=== PATIENT | female | born 1995 | race Caucasian/White ===

== ENCOUNTER 2016-06-02 06:39 | Inpatient (IN) | payer MEDICAID ==
[~2016-06-02] VITALS: Ht 147.3 cm; Wt 54.0 kg
--- NOTE | ~2016-06-02 | OR ---
PATIENT'S NAME: SAVAGE TORRE [facility] AGE: 20 Y [address] ROOM: [place] [id number] LOCATION: GOBS ADMIT DATE: 06/02/2016 OR/Procedure Report DISCHARGE DATE: FAMILY PHYSICIAN: CURLY GARCIA MD ATTENDING PHYSICIAN: LA FU SURGEON: La Fu MD BOOKKEEPER: None. DATE OF PROCEDURE: 06/02/2016 PRE-DELIVERY DIAGNOSES: 1. Intrauterine at 35 weeks and 6 days. 2. Intrauterine growth retardation of less than the 5th percentile with no interval growth. 3. Maternal tobacco use. 4. Arrest of descent. POST-DELIVERY DIAGNOSES: 1. Intrauterine at 35 weeks and 6 days. 2. Intrauterine growth retardation of less than the 5th percentile with no interval growth. 3. Maternal tobacco use. 4. Arrest of descent. PROCEDURE PERFORMED: A low vacuum-assisted vaginal delivery. FINDINGS: A viable male infant with score of 7 and 8 and a weight of 4 pounds 11 ounces. Intact placenta with three-vessel cord. Placenta was noted to have some what look like fibrous bands throughout. Placenta was otherwise normal in appearance. Normal-appearing cervix. A second-degree perineal laceration which was repaired per routine and hemostatic. SPECIMENS: Cord blood and arterial cord pH and placenta. FLUIDS: IV antibiotics with penicillin for unknown GBS status. ANESTHESIA: Anesthesia was with epidural. ESTIMATED BLOOD LOSS: 300 mL. COMPLICATIONS: None. DISPOSITION: The patient is stable. Routine care. INDICATIONS FOR PROCEDURE: The patient is a 20-year-old, G1, P0, who had been followed through her by Dr. Garcia in [place], [place]. She was PATIENT'S NAME: SAVAGE TORRE [facility] AGE: 20 Y [address] ROOM: [place] [id number] LOCATION: GOBS ADMIT DATE: 06/02/2016 OR/Procedure Report DISCHARGE DATE: FAMILY PHYSICIAN: CURLY GARCIA MD ATTENDING PHYSICIAN: LA FU referred to our office on June 01 for measuring size less than dates with a recent ultrasound showing intrauterine growth restriction with no percentile given. On review of patient's records, it appears that her dating is by a 20- week scan, although she did not initially present for care until she was approximately 25 weeks. It looks like she was dating size appropriate for dates until the last few weeks when started to doubly drop off. Her outside ultrasound done on May 21 gave an estimated weight around 1800 g. The patient does have a known history of tobacco use, but otherwise states the has been uncomplicated. She is also Rh negative. An ultrasound was repeated at our office on June 02 with findings of again an estimated weight just over 1800 g. IUGR appeared symmetrical and there does not appear to be any obvious abnormalities noted. It was discussed with the patient that since it appeared that there had been no interval growth that delivery was recommended. She was given a dose of Celestone on June 01 and then again on the morning of June 02 when she presented for induction. GBS culture was collected, but was not going to be available until after delivery. On June 02 the patient presented for her induction and was found to be 1, 50, and -2 and a Lala bulb was placed, and Pitocin IV was started. The patient progressed to 4 cm when Lala bulb came out. She then had an epidural placed. An AROM was performed with clear fluid at approximately 1700 hours that evening. She continued to progress normally through labor and was noted to be complete at 2050 hours. The patient then began expulsive efforts. DESCRIPTION OF PROCEDURE: The patient was allowed to make expulsive efforts with me present in the room for an additional hour. She failed to make any descent past +2 station with increasing caput present. It was felt at that time that it was appropriate to proceed with a low vacuum-assisted vaginal delivery as the patient has had an arrest for the last hour. She was consented and aware of risks and benefits of the procedure including risk for cephalohematoma, and risk of injury to the fetus, and risk of worsening perineal lacerations including possible 3rd or 4th degree tears. The patient voiced consent to the procedure. A Lala catheter had been previously present due to her epidural and was removed approximately 20 minutes prior to vacuum delivery. Pelvis was felt to be adequate and again as noted above estimated weight was approximately 1800 g. The fetus was felt to be in the JOBY presentation. The vacuum was tested and found to be adequate. The vacuum was then applied to head and brought to an appropriate pressure. With maternal expulsive efforts, gentle downward traction was applied. Over the course of two pushing efforts, head was delivered and vacuum was disengaged. Again the fetus was noted to be in the JOBY presentation. It was allowed to restitute. Had a tight nuchal cord x2 which was not able to be reduced and shoulders were delivered through the cord followed by the remainder of the body. The cord was then reduced and cord was clamped and cut. The infant was handed off to the awaiting unleavened dough mixer and NICU nurse. Arterial cord pH and cord blood were obtained. IV Pitocin was started PATIENT'S NAME: SAVAGE TORRE [facility] AGE: 20 Y [address] ROOM: [place] [id number] LOCATION: [facility] ADMIT DATE: 06/02/2016 OR/Procedure Report DISCHARGE DATE: FAMILY PHYSICIAN: CURLY GARCIA MD ATTENDING PHYSICIAN: LA FU per protocol. Gentle downward traction was applied on the umbilical cord and placenta was delivered shortly thereafter and appeared to be intact. Again as noted above, it was inspected and found to have some fibrous banding but otherwise appeared relatively normal. The cervix, vagina, and perineum were then inspected for lacerations with findings of a second-degree perineal laceration which was repaired per routine with 2-0 Vicryl. All needle, sponge, and instrument counts were noted to be correct x2. The patient remained in her room and appeared to be in stable condition at the completion of the procedure. LA FU MD GT/modl /[id number] d: 06/03/16 0020 t: 06/03/16 2306, OPERATIVE SUMMARY
[2016-06-02 07:42] LABS: BASOPHIL % 0.2 %; EOSINOPHIL % 0.2 %; HEMATOCRIT 36.2 % (33.0-46.0); HEMOGLOBIN 12.5 g/dL (11.0-15.0); IMMATURE GRANULOCYTE # 0.1 K/uL (0.0-0.3); IMMATURE GRANULOCYTE % 0.8 %; LYMPHOCYTE # 2.6 K/uL (0.8-4.0); LYMPHOCYTE % 14.9 %; MCH 30.6 pg (27.0-34.0); MCHC 34.5 gm/dL (32.0-36.5); MCV 88.7 fl (83.0-98.0); MONOCYTE % 5.9 %; MPV 9.2 fl (9.4-12.4); NEUTROPHIL # (ANC) 13.6 K/uL (1.8-7.8); NRBC % 0 /100WBC (0-0.00); PLATELET COUNT 365 K/uL (150-450); RBC 4.08 M/uL (3.50-5.00); RDW-CV 12.1 % (11.9-14.6); WBC 17.4 K/uL (4.0-11.0)
[2016-06-03 03:41] LABS: BICARBONATE 20.3 mmol/L (18.0-23.0); PCO2 37 mmHg (35-45); PO2 28 mmHg (80-90)
[2016-06-03 05:47] LABS: BASOPHIL % 0.2 %; EOSINOPHIL % 0.1 %; HEMOGLOBIN 9.7 g/dL (11.0-15.0); IMMATURE GRANULOCYTE # 0.2 K/uL (0.0-0.3); IMMATURE GRANULOCYTE % 0.9 %; LYMPHOCYTE % 11.8 %; MCH 30.6 pg (27.0-34.0); MCV 89.9 fl (83.0-98.0); MONOCYTE # 2.1 K/uL (0.0-1.0); MONOCYTE % 8.2 %; MPV 9.2 fl (9.4-12.4); NEUTROPHIL # (ANC) 19.7 K/uL (1.8-7.8); NEUTROPHIL % 78.8 %; NRBC % 0 /100WBC (0-0.00); PLATELET COUNT 325 K/uL (150-450); RBC 3.17 M/uL (3.50-5.00); RDW-CV 12.3 % (11.9-14.6)
[2016-06-03 05:49] LABS: HEMATOCRIT 28.5 % (33.0-46.0)
[2016-06-04] MEDS ORDERED: SURFAK240 MG PO (13:44)
[2016-06-04] MEDS ORDERED: FEROSUL325 MG PO (13:46)
[2016-06-04] MEDS ORDERED: PRENATAL 1+1)(P1 TAB PO (13:46)
[2016-06-04] MEDS ORDERED: APNO TOP (13:46)
[2016-06-04] MEDS ORDERED: LANSINOH7 GM TOP (13:47)
[2016-06-04] MEDS ORDERED: MOTRIN800 MG PO (13:47)
[2016-06-04] MEDS ORDERED: PERCOCET 5-3251 EACH PO (13:48)
== END 2016-06-04 14:55 | disposition disaster alternative care site (69) | DRG 775 ==
LOC: GOBS 06:39
PROVIDERS: ADMIT Obstetrics & Gynecology
DX: O36.5930 Maternal care for other known or suspected poor fetal growth, third trimester, not applicable or unspecified (principal); F17.210 Nicotine dependence, cigarettes, uncomplicated; O62.1 Secondary uterine inertia; O69.1XX0 Labor and delivery complicated by cord around neck, with compression, not applicable or unspecified; O70.1 Second degree perineal laceration during delivery; O99.334 Smoking (tobacco) complicating childbirth; O26.893 Other specified pregnancy related conditions, third trimester; Z67.41 Type O blood, Rh negative; Z3A.35 35 weeks gestation of pregnancy; Z37.0 Single live birth
CPT/HCPCS: J0702; J2540; J2590; J3010; J7120